=== PATIENT | female | born 2000 | race Caucasian/White ===

== ENCOUNTER 2022-10-31 11:23 | Emergency (ER) | payer SELFPAY ==
[2022-10-31] MEDS ORDERED: Famotidine 20 MG Tab PO ONE (11:42)
[2022-10-31] MEDS ORDERED: Cetirizine 10 MG Tab PO ONE (11:42)
[2022-10-31] MEDS ORDERED: Dexamethasone 4 MG Tab PO ONE (11:51)
[2022-10-31] MEDS ORDERED: Metoclopramide 10 MG/2 ML SDV IM ONE (12:36)
[2022-10-31] MEDS ORDERED: Ketorolac 30 MG/ML SDV IM ONE (13:09)
== END 2022-10-31 14:48 | disposition home or self-care (01) ==
LOC: MW.ED 11:23
DX: L28.2 Other prurigo (principal); R51.9 Headache, unspecified; F17.210 Nicotine dependence, cigarettes, uncomplicated
CPT/HCPCS: 70450; 81025; 82947; 87651; 96372; 99284; A9270; J1885; J2765; J8540; 99282